=== PATIENT | female | born 2005 | race Caucasian/White ===

== ENCOUNTER 2024-02-27 14:39 | Emergency (ER) | payer OTHER, SELFPAY ==
[2024-02-27 14:51] VITALS: BP 133/63; PULSE 100; TEMP 36.6; O2SAT 100; BMI 22.3
--- NOTE | 2024-02-27 15:01 | ED_ITS ---
HPI HPI - General Adult General Chief complaint: Animal Bite Stated complaint: CAT BITE, UPPER LET EXTREMITY Time Seen by Provider: 02/27/24 14:57 Source: patient Mode of arrival: walk-in History of Present Illness HPI narrative: Patient is a 18-year-old female early in who presents to the ER for an animal bite to the left forearm. She states that her cat who is fully vaccinated bit her on the left forearm 2 hours ago. 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 No bleeding or drainage at this time. Related Data Previous Rx's ?Medication ?Instructions ?Recorded amoxicillin 875 mg-potassium 1 tab PO BID #14 tabs 02/27/24 clavulanate 125 mg tablet Allergies Allergy/AdvReac Type Severity Reaction Status Date / Time No Known Drug Allergies Allergy Verified 02/27/24 14:58 Opioid HPI Opioid Management Most Recent Opioid Data: No Data to Display Review of Systems ROS Constitutional Denies: fever or chills Ears, nose, mouth, and throat Denies: throat pain or nasal congestion Respiratory Denies: shortness of breath Gastrointestinal Denies: nausea or vomiting Integumentary/Breast Denies: rash Neurological Denies: headache Hematologic/Lymphatic Denies: easy bruising or easy bleeding Exam Narrative Exam Narrative: Gen.: Awake, alert, in no distress Head: Normocephalic, atraumatic ENT: Moist mucous membranes Respiratory: No respiratory distress Extremities: Moves extremities equally, Superficial abrasion with 2 extremely superficial puncture wounds to the volar left forearm. No deep laceration or puncture noted. No bleeding or drainage. Psych: Normal mood and affect Neuro: No focal neuro deficit Skin: Warm, dry, intact Constitutional Vital Signs, click to edit/add: Last Vital Signs Temp 97.9 F 02/27/24 14:51 Pulse 100 H 02/27/24 14:51 Resp 18 02/27/24 14:51 BP 133/63 02/27/24 14:51 Pulse Ox 100 02/27/24 14:51 O2 Del Method Room Air 02/27/24 14:51 Course Vital Signs Vital signs: Vital Signs Temperature 97.9 F 02/27/24 14:51 Pulse Rate 100 H 02/27/24 14:51 Respiratory Rate 18 02/27/24 14:51 Blood Pressure 133/63 02/27/24 14:51 Pulse Oximetry 100 02/27/24 14:51 Oxygen Delivery Method Room Air 02/27/24 14:51 Temperature 97.9 F 02/27/24 14:51 Pulse Rate 100 H 02/27/24 14:51 Respiratory Rate 18 02/27/24 14:51 Blood Pressure 133/63 02/27/24 14:51 Pulse Oximetry 100 02/27/24 14:51 Oxygen Delivery Method Room Air 02/27/24 14:51 Medical Decision Making MDM Narrative Medical decision making narrative: Cat bite is extremely superficial, patient placed on Augmentin as she is , although there is no evidence of significant laceration or puncture at this time. Patient encouraged to use topical wound care, Augmentin given for home. Return to the ER if symptoms change or worsen. Medical Records Medical records reviewed: Yes I reviewed the patient's medical records Discharge Plan Discharge Stand Alone Forms: Portal Instructions Chief Complaint: Animal Bite Clinical Impression: Cat bite Patient Disposition: Home, Self-Care Time of Disposition Decision: 15:00 Condition: Good Prescriptions / Home Meds: New amoxicillin-pot clavulanate 875-125 mg tablet 1 tab PO BID Qty: 14 0RF Print Language: Croatian Instructions: Animal Bite (ED) Referrals: Physician,Non-Staff, MD [Primary Care Provider] - 1 week
== END 2024-02-27 15:20 | disposition home or self-care (01) ==
PROVIDERS: Emergency Provider Emergency Medicine Emergency Medical Services
DX: O9A.219 Injury, poisoning and certain other consequences of external causes complicating pregnancy, unspecified trimester (principal); S50.872A Other superficial bite of left forearm, initial encounter; W55.01XA Bitten by cat, initial encounter; Z3A.00 Weeks of gestation of pregnancy not specified
CPT/HCPCS: 99284